=== PATIENT | female | born 1975 | race Caucasian/White ===

== ENCOUNTER 2024-03-21 13:22 | Emergency (ER) | payer BC ==
[~2024-03-21] VITALS: Ht 162.6 cm; Wt 83.9 kg
[2024-03-21] MEDS ORDERED: MAGNESIUM SULFATE 2 GM/50 ML BAG IV ONE (13:45)
[2024-03-21] MEDS ORDERED: KETOROLAC TROMETHAMINE 30 MG/ML VIAL IV ONE (13:45)
[2024-03-21] MEDS ORDERED: SODIUM CHLORIDE 0.9% 1,000 ML IV PRN (13:45)
[2024-03-21] MEDS ORDERED: DEXAMETHASONE SOD PHOS 10 MG/ML VIAL IV ONE (13:45)
[2024-03-21] MEDS ORDERED: ondansetron HCL 4 MG/2 ML VIAL IV ONE (13:45)
[2024-03-21 13:46] LABS: BASOPHILS 1.3 % (0-2); EOSINOPHILS 1.6 % (0-6); HEMATOCRIT 41.6 % (35.0-50.0); LYMPHOCYTES 26.9 % (24-44); MCH 28.5 (27-36); MCHC 33.7 g/dl (30-36); MCV 84.6 fl (81-99); MONOCYTES 4.7 % (0-12); NEUTROPHILS 65.5 % (39-80); PLATELET COUNT 262 K/uL (140-440); RBC 4.92 M/ul (4.3-5.7); RDW 12.9 (10.5-15.0)
[2024-03-21 14:02] LABS: ALBUMIN 4.6 g/dL (3.4-5.0); ALBUMIN/GLOBULIN RATIO 1.39 (1.1-2.4); ANION GAP 13.6 (7-21); BILIRUBIN, TOTAL 0.8 ng/dL (0.2-1.0); BUN/CREATININE RATIO 21.33 (6.0-28.6); CALCIUM 9.6 mg/dL (8.5-10.1); CREATININE, SERUM 0.75 mg/dL (0.55-1.02); POTASSIUM 3.6 mmol/L (3.5-5.1); PROTEIN, TOTAL 7.9 g/dL (6.4-8.2)
[2024-03-21 15:20] VITALS: BP 124/85
== END 2024-03-21 15:21 | disposition home or self-care (01) ==
LOC: ED 13:22
PROVIDERS: Emergency Medicine
DX: G43.909 Migraine, unspecified, not intractable, without status migrainosus (principal); Z88.8 Allergy status to other drugs, medicaments and biological substances; Z88.2 Allergy status to sulfonamides
CPT/HCPCS: 36415; 70450; 70496; 80053; 85025; 96374; 96375; 99284-25; J1100; J1885; J2405; J3475; J7030; Q9967